=== PATIENT | female | born 1980 | race Two or more races ===

== ENCOUNTER → 2017-05-25 | Outpatient (CLI) | payer OTHER ==
[2017-05-25 09:42] LABS: BASOPHIL % 0.3 % (0-2); PLATELET COUNT 197 x10^3mcL (130-400); RED CELL DISTRIBUTION WIDTH 13.7 % (11.5-14.5)
[2017-05-25 09:57] LABS: ALBUMIN 3.7 g/dL (3.4-5.0); ALKALINE PHOSPHATASE 58 U/L (46-116); ALT/SGPT 33 U/L (14-59); AST/SGOT 24 U/L (15-37); BILIRUBIN TOTAL 0.8 mg/dL (0.20-1.00); CALCIUM 8.5 mg/dL (8.5-10.1); CARBON DIOXIDE 27.4 mmol/L (21-32); CHLORIDE SERUM 108 mmol/L (98-107); CREATININE SERUM 0.7 mg/dL (0.6-1.0); GFR1 > 60 mL/min; GLUCOSE SERUM 90 mg/dL (74-106); HDL CHOLESTEROL 57 mg/dL (40-60); POTASSIUM SERUM 3.7 mmol/L (3.5-5.1); SODIUM SERUM 138 mmol/L (136-145); TOTAL PROTEIN, SERUM 7.2 g/dL (6.4-8.2)
[2017-05-25 10:01] LABS: CHOLESTEROL 130 mg/dL (<200); CHOLESTEROL/HDL RATIO 2.3; TRIGLYCERIDES 24 mg/dL (<150)
[2017-05-25 10:03] LABS: FREE T4 1.04 ng/dL (0.76-1.46); FREE THYROXINE INDEX 2.2 ug/dL (1.4-4.5); T3 TOTAL 0.94 ng/mL; T4(THYROXINE) 5.6 ug/dL (4.7-13.3)
== END | disposition home or self-care (01) ==
LOC: LB 08:41
PROVIDERS: Family Medicine
DX: M54.5 Low back pain (principal); M25.562 Pain in left knee
CPT/HCPCS: 84439

== ENCOUNTER → 2017-06-10 | Outpatient (CLI) | payer OTHER | END | disposition home or self-care (01) | LOC: MI 08:48 | PROC: BW4GZZZ Ultrasonography of Pelvic Region (ICD-10-PCS; principal; 2017-06-10) | PROC: BR39ZZZ Magnetic Resonance Imaging (MRI) of Lumbar Spine (ICD-10-PCS; 2017-06-10) | DX: M54.5 Low back pain (principal); M25.562 Pain in left knee ==

== ENCOUNTER → 2017-06-18 | Outpatient (CLI) | payer OTHER | END | disposition home or self-care (01) | LOC: MI 06-16 10:00 | PROC: BQ38ZZZ Magnetic Resonance Imaging (MRI) of Left Knee (ICD-10-PCS; principal; 2017-06-18) | DX: M25.562 Pain in left knee (principal); M54.5 Low back pain ==

== ENCOUNTER → 2017-06-29 | Outpatient (CLI) | payer OTHER | END | disposition home or self-care (01) | LOC: US 06-10 11:30 → LB 08:27 | DX: D39.10 Neoplasm of uncertain behavior of unspecified ovary (principal) ==

== ENCOUNTER → 2017-08-05 | Outpatient (CLI) | payer OTHER | END | disposition home or self-care (01) | LOC: LB 12:17 | DX: Z71.51 Drug abuse counseling and surveillance of drug abuser (principal) ==

== ENCOUNTER → 2018-05-17 | Outpatient (CLI) | payer OTHER | END | disposition home or self-care (01) | LOC: RD 11:11 | DX: Z11.1 Encounter for screening for respiratory tuberculosis (principal) | CPT/HCPCS: Q0092 ==

== ENCOUNTER → 2019-01-21 | Outpatient (CLI) | payer OTHER | END | disposition home or self-care (01) | LOC: RD 08:59 | DX: M25.571 Pain in right ankle and joints of right foot (principal); B19.10 Unspecified viral hepatitis B without hepatic coma | CPT/HCPCS: Q0092 ==

== ENCOUNTER → 2019-06-27 | Outpatient (CLI) | payer OTHER ==
[2019-06-27 09:52] LABS: BASOPHIL % 0.3 % (0-2); PLATELET COUNT 257 x10^3mcL (130-400); RED CELL DISTRIBUTION WIDTH 13.4 % (11.5-14.5)
[2019-06-27 10:15] LABS: T3 TOTAL 0.79 ng/mL
[2019-06-27 10:16] LABS: ALBUMIN 4.1 g/dL (3.4-5.0); ALKALINE PHOSPHATASE 87 U/L (46-116); ALT/SGPT 31 U/L (14-59); AST/SGOT 24 U/L (15-37); BILIRUBIN TOTAL 1.3 mg/dL (0.20-1.00); CALCIUM 8.4 mg/dL (8.5-10.1); CARBON DIOXIDE 26.7 mmol/L (21-32); CHLORIDE SERUM 105 mmol/L (98-107); CHOLESTEROL 135 mg/dL (<200); CREATININE SERUM 0.8 mg/dL (0.6-1.0); FREE T4 1.16 ng/dL (0.76-1.46); GFR1 > 60 mL/min; GLUCOSE SERUM 92 mg/dL (74-106); POTASSIUM SERUM 3.7 mmol/L (3.5-5.1); SODIUM SERUM 141 mmol/L (136-145); TOTAL PROTEIN, SERUM 8.2 g/dL (6.4-8.2)
[2019-06-27 10:17] LABS: CHOLESTEROL/HDL RATIO 2.2; HDL CHOLESTEROL 61 mg/dL (40-60); TRIGLYCERIDES 25 mg/dL (<150)
[2019-06-28 10:05] LABS: microalbumin:creatinine ratio 4.7 (0.0-30.0)
== END | disposition home or self-care (01) ==
LOC: LB 09:11 → CT 13:00
PROC: BW211ZZ Computerized Tomography (CT Scan) of Abdomen and Pelvis using Low Osmolar Contrast (ICD-10-PCS; principal; 2019-06-27)
DX: Z00.00 Encounter for general adult medical examination without abnormal findings (principal); I10 Essential (primary) hypertension; E55.9 Vitamin D deficiency, unspecified
CPT/HCPCS: 84439

== ENCOUNTER → 2019-07-01 | Outpatient (CLI) | payer OTHER ==
[2019-07-01 09:42] LABS: UA SPECIFIC GRAVITY <=1.005 (1.005-1.035); microscopic required? YES; urine erythrocyte NEGATIVE (NEGATIVE)
== END | disposition home or self-care (01) ==
LOC: LB 09:17
DX: Z00.00 Encounter for general adult medical examination without abnormal findings (principal); I10 Essential (primary) hypertension; E55.9 Vitamin D deficiency, unspecified

== ENCOUNTER → 2019-07-12 | Outpatient (CLI) | payer OTHER ==
[2019-07-12 10:46] LABS: FREE T4 0.92 ng/dL (0.76-1.46)
[2019-07-12 11:10] LABS: T3 TOTAL 1.03 ng/mL; T4(THYROXINE) 5.9 ug/dL (4.7-13.3)
== END | disposition home or self-care (01) ==
LOC: US 09:36
PROC: BG44ZZZ Ultrasonography of Thyroid Gland (ICD-10-PCS; principal; 2019-07-12)
DX: E03.9 Hypothyroidism, unspecified (principal)
CPT/HCPCS: 84439